=== PATIENT | male | born 1975 | race African-American/Black ===

== ENCOUNTER → 2016-09-22 | Outpatient (CLI) | payer OTHER ==
[2016-09-22 10:15] LABS: ALBUMIN 4.4 g/dL (3.4-5.0); ALKALINE PHOSPHATASE 113 U/L (46-116); ALT/SGPT 39 U/L (16-63); AST/SGOT 26 U/L (15-37); BILIRUBIN DIRECT 0.16 mg/dL (0.0-0.2); BILIRUBIN TOTAL 0.72 mg/dL (0.20-1.00); CALCIUM 9.3 mg/dL (8.5-10.1); CARBON DIOXIDE 28.5 mmol/L (21-32); CHLORIDE SERUM 104 mmol/L (98-107); CHOLESTEROL 164 mg/dL (<200); CHOLESTEROL/HDL RATIO 2.8; CREATININE SERUM 1.1 mg/dL (0.7-1.3); GFR1 > 60 mL/min; GLUCOSE SERUM 94 mg/dL (74-106); HDL CHOLESTEROL 58 mg/dL (40-60); POTASSIUM SERUM 4.3 mmol/L (3.5-5.1); SODIUM SERUM 142 mmol/L (136-145); TOTAL PROTEIN, SERUM 7.3 g/dL (6.4-8.2); TRIGLYCERIDES 96 mg/dL (<150)
[2016-09-22 10:17] LABS: T3 TOTAL 0.98 ng/mL
[2016-09-22 10:25] LABS: FREE T4 0.77 ng/dL (0.76-1.46); FREE THYROXINE INDEX 2.2 ug/dL (1.4-4.5); T4(THYROXINE) 6.5 ug/dL (4.7-13.3)
== END | disposition home or self-care (01) ==
LOC: RD 09:26
PROVIDERS: Family Medicine
DX: M25.569 Pain in unspecified knee (principal)
CPT/HCPCS: 84439

== ENCOUNTER → 2016-12-03 | Outpatient (CLI) | payer OTHER | END | disposition home or self-care (01) | LOC: RD 12:27 | DX: R05 Cough (principal) ==

== ENCOUNTER → 2017-08-05 | Outpatient (CLI) | payer OTHER | END | disposition home or self-care (01) | LOC: ED 16:43 | DX: M25.569 Pain in unspecified knee (principal) ==